=== PATIENT | female | born 1975 | race Caucasian/White ===

== ENCOUNTER → 2020-10-07 12:21 | Outpatient (BNVA) | payer OTHER, SELFPAY | PROVIDERS: Visit Provider Internal Medicine | DX: S91.311A Laceration without foreign body, right foot, initial encounter (principal); W16.822A Jumping or diving into other water striking bottom causing other injury, initial encounter | CPT/HCPCS: 90715; 99203 ==

== ENCOUNTER → 2020-10-09 11:11 | Outpatient (BNVA) | payer OTHER, SELFPAY | PROVIDERS: Visit Provider Internal Medicine | DX: S91.311A Laceration without foreign body, right foot, initial encounter (principal); X58.XXXA Exposure to other specified factors, initial encounter | CPT/HCPCS: 99213 ==

== ENCOUNTER → 2020-10-15 13:18 | Outpatient (BNVA) | payer OTHER, SELFPAY | PROVIDERS: Visit Provider Internal Medicine | DX: S91.311A Laceration without foreign body, right foot, initial encounter (principal); X58.XXXA Exposure to other specified factors, initial encounter | CPT/HCPCS: 99212; 99213 ==